=== PATIENT | female | born 1990 | race Caucasian/White ===

== ENCOUNTER → 2016-12-05 | Outpatient (CLI) | payer OTHER ==
--- NOTE | 2016-12-06 10:51 | RAD ---
EXAM DESCRIPTION: Clavicle,Left CLINICAL HISTORY: 26 years Female, FX COMPARISON: None. FINDINGS: 2 views of the left clavicle show a mid left clavicular fracture with one shaft width inferior displacement of the distal fracture fragment and moderate superior angulation at the fracture site. Callus formation is noted. The AC joint is anatomically aligned. IMPRESSION: Displaced and angulated mid left clavicular fracture, partially united. Electronically signed by: Jd Cormier MD 12/06/2016 10:49 AM CDT
== END ==
LOC: RAD 09:16
PROVIDERS: ATTEND Orthopaedic Surgery
DX: S42.002A Fracture of unspecified part of left clavicle, initial encounter for closed fracture (principal)